=== PATIENT | female | born 1970 | race African-American/Black ===

== ENCOUNTER 2020-12-04 11:18 | Emergency (ER) | payer MEDICAID ==
[~2020-12-04] VITALS: Ht 165.1 cm; Wt 77.0 kg
[2020-12-04] MEDS ORDERED: AMLO10TA80 PO (11:27)
[2020-12-04 12:30] LABS: BASOPHILS % 0.6 % (0.0-2.0); EOSINOPHILS % 0.7 % (0.0-5.0); HEMATOCRIT. 38.5 % (36.0-48.0); LYMPHOCYTES % 51.7 % (20.0-50.0); MEAN CORPUSCULAR VOLUME 85.7 fL (81.0-99.0); MEAN PLATELET VOLUME 8.3 fl (7.4-10.4); MONOCYTES % 10.9 % (2.0-8.0); NEUTROPHILS % 36.1 % (40.0-76.0); PLATELET 336 x1000/uL (130-400); RED BLOOD CELL COUNT 4.49 mill/uL (4.2-5.4); RED CELL DISTRIBUTION WIDTH 16.2 % (11.6-14.6)
[2020-12-04 12:32] LABS: CHLORIDE 106 mEq/L (98-107)
[2020-12-04] MEDS ORDERED: CLONIDINE 0.2MG TABLET PO ONE (13:00)
[2020-12-04] MEDS ORDERED: POTASSIUM CHLORIDE 20MEQ TABLET SR PO ONE (13:00)
[2020-12-04 14:05] VITALS: BP 153/101
== END 2020-12-04 14:32 | disposition home or self-care (01) ==
LOC: ER 11:18
DX: I10 Essential (primary) hypertension (principal); E87.6 Hypokalemia; Z88.0 Allergy status to penicillin; Z91.040 Latex allergy status; Z91.018 Allergy to other foods; Z91.048 Other nonmedicinal substance allergy status
CPT/HCPCS: 36415; 71045; 80053; 83880; 84484; 85025; 93005; 99285

== ENCOUNTER 2020-12-12 16:23 | Emergency (ER) | payer MEDICAID ==
[~2020-12-12] VITALS: Ht 165.1 cm; Wt 74.0 kg
[~2020-12-12 16:23] MED LIST: AMLO10TA80 PO
[2020-12-12] MEDS ORDERED: KETOROLAC 60MG/2ML VIAL IM ONE (23:00)
[2020-12-12 23:03] VITALS: BP 164/96
[2020-12-12] MEDS ORDERED: NAPR-1176 MT (23:45)
[2020-12-12] MEDS ORDERED: ACETAMINOPHEN 325MG TABLET PO ONE (23:45)
[2020-12-12] MEDS ORDERED: ACET-2708 MT (23:45)
[2020-12-12] MEDS ORDERED: CYCL5TAB MT (23:45)
== END 2020-12-13 00:12 | disposition home or self-care (01) ==
LOC: ER 16:23
DX: M54.42 Lumbago with sciatica, left side (principal); I10 Essential (primary) hypertension; Z88.0 Allergy status to penicillin
CPT/HCPCS: 96372; 99283; J1885